=== PATIENT | female | born 1960 | race Caucasian/White ===

== ENCOUNTER 2017-03-01 10:13 | Emergency (ER) | payer OTHER ==
[~2017-03-01] VITALS: Ht 170.2 cm; Wt 136.1 kg
[~2017-03-01 10:13] MED LIST: CIPR-225 PO; CIPR7.5D2 EACH EAR; CLAR-19 PO; CYCL10TA9 PO; HYDR-3583 PO; HYDR12.570; LEVO750T6 PO; LSNP10T; NAPR-243 PO; NAPR220T66 PO; PRD20T PO; TRM50T PO
--- OUTSIDE RECORDS SUMMARY | 2017-03-01 10:30 | XMS REPORT | Clinical Summary ---
Author Author Admin, Desiree Organization [employer] Address Unknown Phone Unavailable Allergies, Adverse Reactions, Alerts Allergy Name Reaction Description Start Date Severity Status Provider DIFLUCAN Critical Active Chester De La Cruz MD SULFA thick tongue, difficulty swallowing Critical Active Chester De La Cruz MD Conditions or Problems Problem Name Problem Code Onset Date Status Entry Date Provider Comment Standard Description Annotate Hypertension 401.9 Active Chester De La Cruz MD Unspecified essential hypertension Depression 311 Active Chester De La Cruz MD Depressive disorder, not elsewhere classified Renal mass 593.9 Active Chester De La Cruz MD Unspecified disorder of kidney and ureter Medication List Medication Instructions Start Date Stop Date Generic Name NDC Status Provider Patient Instruction METOPROLOL TARTRATE 25 MG ORAL TABS Take one by mouth daily METOPROLOL TARTRATE 63934991390 Active Chester De La Cruz MD Active CYMBALTA 30 MG ORAL CPEP Take one by mouth daily DULOXETINE HCL 92421584183 Active Chester De La Cruz MD Active Diagnostic Results Date Name Value Unit Range Description Lab Report: Creatinine, BUN - Chemistry creatinine, serum 0.82 mg/dL 0.55-1.30 urea nitrogen, blood 11 mg/dL 7-18 Encounters Code Encounter Date Provider Facility CPT-90169 Level 4 New Patient 10:56:37 CDT Chester De La Cruz MD [employer] [facility] Procedures Code Procedure Name Date Entry Date Standard Description CPT-82798 Venipuncture Draw Fee 11:14:56 CDT
--- OUTSIDE RECORDS SUMMARY | 2017-03-01 10:30 | XMS REPORT | Clinical Summary ---
Author Author Admin, Desiree Organization [employer] Address Unknown Phone Unavailable Allergies, Adverse Reactions, [...] Take one by mouth daily METOPROLOL TARTRATE 97840798360 Active Chester De La Cruz MD Active CYMBALTA 30 MG ORAL CPEP Take one by mouth daily DULOXETINE HCL 99889618832 Active Chester De La Cruz MD Active Diagnostic Results Date Name Value Unit Range Description Lab Report: Creatinine, BUN - Chemistry creatinine, serum 0.82 mg/dL 0.55-1.30 urea nitrogen, blood 11 mg/dL 7-18 Encounters Code Encounter Date Provider Facility CPT-28741 Level 4 New Patient 10:56:37 CDT Chester De La Cruz MD [employer] [facility] Procedures Code Procedure Name Date Entry Date Standard Description CPT-62172 Venipuncture Draw Fee 11:14:56 CDT
--- OUTSIDE RECORDS SUMMARY | 2017-03-01 10:30 | XMS REPORT ---
Author Author MARINA RANKIN Organization [employer] Address Unknown Phone Unavailable Care Team Providers Care Storage Engineer Name Role Phone MARINA RANKIN CP Unavailable Allergies, Adverse Reactions, Alerts Substance Reaction Event Type Diflucan Info Not Available Drug Allergy Problems Problem Type Condition Code Onset Dates Condition Status Problem Other drug allergy 995.27 Active Assessment Urgency of micturition R39.15 Active Problem Unspecified seborrheic dermatitis 690.10 Active Assessment Low back pain radiating to right lower extremity M54.5 Active Problem Unspecified infective otitis externa 380.10 Active Problem Other psoriasis 696.1 Active Problem Abdominal pain, unspecified site 789.00 Active Problem Counseling on injury prevention V65.43 Active Problem Thoracic or lumbosacral neuritis or radiculitis, unspecified 724.4 Active Problem Cough 786.2 Active Problem Acute sinusitis, unspecified 461.9 Active Problem Rash and other nonspecific skin eruption 782.1 Active Problem Abdominal or pelvic swelling, mass or lump, unspecified site 789.30 Active Problem Anxiety state, unspecified 300.00 Active Problem Unspecified episodic mood disorder 296.90 Active Problem Unspecified viral infection, in conditions classified elsewhere and of unspecified site 079.99 Active Problem Insomnia, unspecified 780.52 Active Problem Essential hypertension, benign 401.1 Active Problem Pain in joint, lower leg 719.46 Active Problem Acute pharyngitis 462 Active Problem Acute upper respiratory infections of unspecified site 465.9 Active Problem Unspecified pruritic disorder 698.9 Active Problem Candidiasis of unspecified site 112.9 Active Problem Other chronic pain 338.29 Active Problem Unspecified disorder of skin and subcutaneous tissue 709.9 Active Medications Medication Code System Code Instructions Start Date End Date Status Dosage Lisinopril [facility] [address]-06 10 MG Orally Once a day Apr 14, 2015 1 tablet Aleve [facility] [address]-71 220 MG Orally every 12 hrs 1 tablet as needed Macrobid [facility] [address]-73 100 MG Orally every 12 hrs Apr 14, 2015Apr 1 capsule with food Cyclobenzaprine HCl [facility] [address]-29 10 MG Orally Three times a day MarApr 24, 2015 1 tablet Procedures Procedure Coding System Code Date URINALYSIS, AUTO, W/O SCOPE CPT-4 74476 Apr 14, 2015 URINE CULTURE/COLONY COUNT CPT-4 48081 Apr 14, 2015 Office Visit, Est Pt., Level 3 CPT-4 14715 Apr 14, 2015 Vital Signs Date/Time: Apr 14, 2015 Temperature 99.1 F Weight 300.0 lbs Height 67 in BMI 46.98 Index Blood Pressure Diastolic 100 mmHg Blood Pressure Systolic 140 mmHg Cardiac Monitoring Heart Rate 86 bpm Results Name Result Date Reference Range Unit Abnormality Flag UA LONG DIP (IN HOUSE) ----MCKENNA Negative 20150414 ----NIT Positive 20150414 ----Exp date 20150414 ----Lot # [id number] ----SG 1.010 20150414 ----KET negative 20150414 ----ABDULKADIR negative 20150414 ----GLU negative 20150414 ----Odor no 20150414 ----pH 5.0 20150414 ----BLO Trace-lysed 20150414 ----URO 0.2 20150414 ----Protein Negative 20150414 ----Lot # [id number] ----Exp date 20150414 ----Clarity clear 20150414 ----Color yellow 20150414 Summary Purpose [employer] Submission
--- OUTSIDE RECORDS SUMMARY | 2017-03-01 10:31 | XMS REPORT ---
Author [facility] Medical Staff Organization [employer] [facility] Address [address] [place], [place] [id number] Phone [phone] Summary purpose TRANSITION OF CARE AUTO GENERATION Chief Complaint and Reason for Visit No authorized Reason for Visit (Admitting Diagnosis) is available for this visit. Problem list No authorized problems tracked for continuity of care are available for this visit. Encounters No authorized problems tracked for encounter diagnoses are available for this visit. Medications No medications recorded for this patient visit Allergies, adverse reactions, alerts No allergy information is available for this patient. Immunizations No immunizations recorded for this patient visit Relevant diagnostic tests and/or laboratory data RESULTS Radiology Results [id number] CT ABD/PEL W CONTRAST PACs Image DATE OF EXAM: Oct 08 2015 [id number] ABD/PELV W CONTRAST : RADIOLOGY REPORT DATE OF SERVICE: 10/08/15 HISTORY: Patient has a left kidney mass which apparently is being followed at an outside institution I believe [facility]. CT ABDOMEN AND PELVIS WITH CONTRAST 1340 HOURS The study shows no lesion in the liver. The gallbladder has been removed. There is no biliary duct dilatation. The spleen is normal. Stomach, pancreas, and adrenal glands are normal. No aneurysm of aorta is seen. The right kidney is unremarkable with no calculi, hydronephrosis, or mass. The right ureter is normal. The left kidney shows an exophytic round to oval lesion anteriorly in the lower aspect. This has fairly abundant peripheral calcification which is fairly regular in thickness. The central portion of this structure has density measurements suggesting probable cyst. The size is 1.9 x 2.0 concerning AP and transverse measurement and 2.5 cm cephalocaudal dimension. Based on a report of a study 4 years earlier this is nearly identical size. The remainder of the left kidney is normal. There is no adenopathy in the abdomen or pelvis. No mesenteric mass or ascites are seen. Bowel is normal. The uterus and adnexa are normal. No other abnormality is seen. IMPRESSION: Peripherally calcified exophytic fairly round lesion anteriorly involving left lower kidney. Based on size being the same over 4 years this is likely benign possibly represents complicated cyst from previous infection. Remainder of study negative Samantha Vaughn DO /va 10/08/2015 14:03: / 10/08/2015 14:48:14 cc:Dr. Celio De La Cruz This document has been electronically Signed by: On: DATE OF EXAM: Oct 08 2015 [id number] ABD/PELV W CONTRAST : RADIOLOGY REPORT DATE OF SERVICE: 10/08/15 HISTORY: Patient has a left kidney mass which apparently is being followed at an outside institution I believe [facility]. CT ABDOMEN AND PELVIS WITH CONTRAST 1340 HOURS The study shows no lesion in the liver. The gallbladder has been removed. There is no biliary duct dilatation. The spleen is normal. Stomach, pancreas, and adrenal glands are normal. No aneurysm of aorta is seen. The right kidney is unremarkable with no calculi, hydronephrosis, or mass. The right ureter is normal. The left kidney shows an exophytic round to oval lesion anteriorly in the lower aspect. This has fairly abundant peripheral calcification which is fairly regular in thickness. The central portion of this structure has density measurements suggesting probable cyst. The size is 1.9 x 2.0 concerning AP and transverse measurement and 2.5 cm cephalocaudal dimension. Based on a report of a study 4 years earlier this is nearly identical size. The remainder of the left kidney is normal. There is no adenopathy in the abdomen or pelvis. No mesenteric mass or ascites are seen. Bowel is normal. The uterus and adnexa are normal. No other abnormality is seen. IMPRESSION: Peripherally calcified exophytic fairly round lesion anteriorly involving left lower kidney. Based on size being the same over 4 years this is likely benign possibly represents complicated cyst from previous infection. Remainder of study negative Samantha Vaughn DO /shannan 10/08/2015 14:03: / 10/08/2015 14:48:14 cc:Dr. Celio De La Cruz This document has been electronically Signed by: SAMANTHA VAUGHN DO On: Oct 08 20156:47P Result Amended on 2015-10-08 at 18:47:49. Previous status was [place]. History of procedures No procedures recorded for this patient visit. Functional status No functional or cognitive status observations are available for this visit. Vital signs No authorized vital signs are available for this visit. Social history No Social History or smoking status observations were recorded for this visit. ( Unknown if ever smoked.) Treatment Plan No treatment plan text is available for this visit. Hospital discharge instructions No discharge instruction text is available for this visit.
--- OUTSIDE RECORDS SUMMARY | 2017-03-01 10:31 | XMS REPORT | Clinical Summary ---
Author Author Admin, PORSHA Organization [employer] Address Unknown Phone Unavailable Allergies, Adverse Reactions, [...] Take one by mouth daily METOPROLOL TARTRATE 01619666539 Active Chester De La Cruz MD Active CYMBALTA 30 MG ORAL CPEP Take one by mouth daily DULOXETINE HCL 87568963404 Active Chester De La Cruz MD Active Vital Signs Date Name Value Unit Range Description blood pressure, diastolic - 8462-4 90 mm[Hg] BP oro blood pressure, systolic - 8480-6 150 mm[Hg] BP sys height E&M - 8302-2 67 [in_us] Bdy height pulse rate E&M - 8867-4 57 /min Heart rate temperature E&M 96 [degF] Body temperature weight E&M - 3141-9 299 [lb_av] Weight Measured Diagnostic Results Date Name Value Unit Range Description Lab Report: Creatinine, BUN - Chemistry creatinine, serum 0.82 mg/dL 0.55-1.30 urea nitrogen, blood 11 mg/dL 7-18 Office Visit: CN Left renal mass and right flank pain - Chemistry RBC, urine, dipstick negative protein, total urine random negative mg/dL Office Visit: CN Left renal mass and right flank pain - Urinalysis pH, urine, semiquantitative 6 specific gravity, urine 1.010 ketones, urine, by test strip negative bilirubin, urine negative glucose, urine, semiquantitative negative urine color yellow appearance, urine clear leukocyte esterase, urine, by dipstick negative nitrite, urine, semiquantitative negative urobilinogen, urine, semiquantitative (dipstick) 0.2 protein, urine, semiquantitative (dipstick) negative Encounters Code Encounter Date Provider Facility CPT-33923 Level 4 New Patient 10:56:37 CDT Chester De La Cruz MD [facility] Procedures Code Procedure Name Date Entry Date Standard Description CPT-87127 Venipuncture Draw Fee 11:14:56 CDT
--- OUTSIDE RECORDS SUMMARY | 2017-03-01 10:31 | XMS REPORT | Clinical Summary ---
Author Author Admin, PORSHA Organization [employer] Address Unknown Phone Unavailable Allergies, Adverse Reactions, Alerts Allergy Name Reaction Description Start Date Severity Status Provider DIFLUCAN Critical Active Chester De La Cruz MD SULFA thick tongue, difficulty swallowing Critical Active Chester eD La Cruz MD Conditions or Problems Problem [...] Take one by mouth daily METOPROLOL TARTRATE 74504362870 Active Chester De La Cruz MD Active CYMBALTA 30 MG ORAL CPEP Take one by mouth daily DULOXETINE HCL 35276318231 Active Chester De La Cruz MD Active [...] negative Encounters Code Encounter Date Provider Facility CPT-19318 Level 4 New Patient 10:56:37 CDT Chester DeL a Cruz MD [facility] Procedures Code Procedure Name Date Entry Date Standard Description CPT-18071 Venipuncture Draw Fee 11:14:56 CDT
--- OUTSIDE RECORDS SUMMARY | 2017-03-01 10:33 | XMS REPORT ---
Author Author [employer] [facility] Medical Staff Organization [employer] [facility] Address [address] [place], [place] [address] Phone [phone] Summary purpose TRANSITION OF CARE AUTO GENERATION [...] tests and/or laboratory data RESULTS Radiology Results [id number] CT ABD/PEL W CONTRAST PACs Image DATE OF EXAM: Oct 08 2015 [id number] ABD/PELV W CONTRAST : RADIOLOGY REPORT DATE OF SERVICE: 10/08/15 HISTORY: Patient has a left kidney mass which apparently is being followed at an outside institution I believe [facility]. CT ABDOMEN AND PELVIS WITH CONTRAST 1340 [...] Remainder of study negative Samantha Vaughn DO /dc 10/08/2015 14:03:00 / 10/08/2015 14:48:14 cc:Dr. Celio Mari This document has been electronically Signed by: On: DATE OF EXAM: Oct 08 2015 [id number] ABD/PELV W CONTRAST : RADIOLOGY REPORT DATE [...] Remainder of study negative Samantha Vaughn DO /dc 10/08/2015 14:03:00 / 10/08/2015 14:48:14 cc:Dr. Celio Mari This document has been electronically Signed by: SAMANTHA VAUGHN DO On: Oct 08 20156:47P Result Amended on 2015-10-08 at 18:47:49. Previous status was [place]. History of procedures Procedure Code Code Type Description Date Performed Performing Physician 24282 CPT-4 CT ABDOMEN&PELVIS W/CONTRAST 10-08-2015 CELIO MARI Functional status No functional or cognitive status [...]
--- OUTSIDE RECORDS SUMMARY | 2017-03-01 10:34 | XMS REPORT | Continuity of Care Document ---
Author Author [facility] Address Unknown Phone Unavailable Allergies Active Description Code Type Severity Reaction Onset Reported/Identified Relationship to Patient Clinical Status Yes sulfa drug Drug Allergy 09/30/2009 Yes Diflucan Drug Allergy 11/02/2011 Yes Diflucan Drug Allergy N/A N/A 11/02/2011 Yes Sulfa (Sulfonamide Antibiotics) [id number] Drug Allergy Severe N/A 10/16/2012 Medications Problems Date Dx Coded Attending Type Code Diagnosis Diagnosed By 09/02/2009 Ot 847.0 09/02/2009 Ot 847.1 09/02/2009 Ot 847.2 09/02/2009 Ot 923.00 09/02/2009 Ot 924.11 09/02/2009 Ot 959.09 09/02/2009 Ot E000.8 09/02/2009 Ot E030 09/02/2009 Ot E812.0 09/15/2009 LATASHA BALDERRAMA APRN S V06.4 Mmr, Echfhvw-jxacu-akxggha Vac 09/15/2009 V06.4 Mmr, Qpxtsly-wdngp-vpppxjn Vac 09/15/2009 FRANCIS CHAUDHARY DO V06.4 Mmr, Ztwtitx-xegzb-sadkiuy Vac 09/15/2009 AFIA ZIEGLER APRN R V06.4 Mmr, Vpnfsus-aswrz-nsdbuzx Vac 09/15/2009 VASQUEZ YE APRN V06.4 Mmr, Cnkarvn-gtvzc-twqdadt Vac 09/30/2009 LATASHA BALDERRAMA APRN 599.0 Urinary Tract Infection 09/30/2009 LATASHA BALDERRAMA APRN 788.1 Dysuria 09/30/2009 599.0 Urinary Tract Infection 09/30/2009 788.1 Dysuria 09/30/2009 FRANCIS CHAUDHARY DO 599.0 Urinary Tract Infection 09/30/2009 FRANCIS CHAUDHARY DO 788.1 Dysuria 09/30/2009 TONEY DIXON AFIA R 599.0 Urinary Tract Infection 09/30/2009 TONEY DIXON AFIA R 788.1 Dysuria 09/30/2009 JORDON YE APRNRICIA R 599.0 Urinary Tract Infection 09/30/2009 JORDON YE APRNRICIA R 788.1 Dysuria 11/10/2009 Ot 278.00 11/10/2009 Ot 305.1 11/10/2009 Ot 401.9 11/10/2009 Ot 710.0 11/10/2009 Ot 786.50 11/10/2009 Ot V85.4 01/12/2010 ELIAS BALDERRAMA APRNNDA S 599.70 Hematuria, Unspecified 01/12/2010 KRISTYN BALDERRAMA APRNA S 724.2 LUMBAGO 01/12/2010 599.70 Hematuria, Unspecified 01/12/2010 724.2 LUMBAGO 01/12/2010 CHAUDHARY DO, FRANCIS K 599.70 Hematuria, Unspecified 01/12/2010 CHAUDHARY DO, FRANCIS K 724.2 LUMBAGO 01/12/2010 TONEY DIXON AFIA R 599.70 Hematuria, Unspecified 01/12/2010 TONEY DIXON AFIA R 724.2 LUMBAGO 01/12/2010 JORDON YE APRNRICIA R 599.70 Hematuria, Unspecified 01/12/2010 JORDON YE APRNRICIA R 724.2 LUMBAGO 03/23/2010 KRISTYN BALDERRAMA APRNA S 461.9 Sinusitis Acute 03/23/2010 LATASHA BALDERRAMA APRN S 796.2 ELEVATED BLOOD PRESSURE READING WITHOUT DIAGNOSIS OF HYPERTENSION 03/23/2010 461.9 Sinusitis Acute 03/23/2010 796.2 ELEVATED BLOOD PRESSURE READING WITHOUT DIAGNOSIS OF HYPERTENSION 03/23/2010 CHAUDHARY DO, FRANCIS K 461.9 Sinusitis Acute 03/23/2010 CHAUDHARY DO, FRANCIS K 796.2 ELEVATED BLOOD PRESSURE READING WITHOUT DIAGNOSIS OF HYPERTENSION 03/23/2010 LIANNE ZIEGLER APRNINA R 461.9 Sinusitis Acute 03/23/2010 TONEY DIXON AFIA R 796.2 ELEVATED BLOOD PRESSURE READING WITHOUT DIAGNOSIS OF HYPERTENSION 03/23/2010 EVIN YE APRNIA R 461.9 Sinusitis Acute 03/23/2010 EVIN YE APRNIA R 796.2 ELEVATED BLOOD PRESSURE READING WITHOUT DIAGNOSIS OF HYPERTENSION 03/29/2010 LATASHA BALDERRAMA APRN S 278.00 OBESITY UNSPECIFIED 03/29/2010 LATASHA BALDERRAMA APRN S 305.1 NONDEPENDENT TOBACCO USE DISORDER 03/29/2010 LATASHA BALDERRAMA APRN S 729.1 Myalgia And Myositis Unspecified 03/29/2010 278.00 OBESITY UNSPECIFIED 03/29/2010 305.1 NONDEPENDENT TOBACCO USE DISORDER 03/29/2010 729.1 Myalgia And Myositis Unspecified 03/29/2010 CHAUDHARY DO, FRANCIS K 278.00 OBESITY UNSPECIFIED 03/29/2010 CHAUDHARY DO, FRANCIS K 305.1 NONDEPENDENT TOBACCO USE DISORDER 03/29/2010 CHAUDHARY DO, FRANCIS K 729.1 Myalgia And Myositis Unspecified 03/29/2010 TONEY DIXON AFIA R 278.00 OBESITY UNSPECIFIED 03/29/2010 TONEY DIXON AFIA R 305.1 NONDEPENDENT TOBACCO USE DISORDER 03/29/2010 TONEY DIXON AFIA R 729.1 Myalgia And Myositis Unspecified 03/29/2010 JORDON YE APRNRICIA R 278.00 OBESITY UNSPECIFIED 03/29/2010 JORDON YE APRNRICIA R 305.1 NONDEPENDENT TOBACCO USE DISORDER 03/29/2010 JORDON YE APRNRICIA R 729.1 Myalgia And Myositis Unspecified 03/31/2010 LATASHA BALDERRAMA APRN S 268.9 VITAMIN D DEFICIENCY 03/31/2010 LATASHA BALDERRAMA APRN S 272.4 Dyslipidemia 03/31/2010 268.9 VITAMIN D DEFICIENCY 03/31/2010 272.4 Dyslipidemia 03/31/2010 CHAUDHARY DO, FRANCIS K 268.9 VITAMIN D DEFICIENCY 03/31/2010 CHAUDHARY DO, FRANCIS K 272.4 Dyslipidemia 03/31/2010 TONEY DIXON AFIA R 268.9 VITAMIN D DEFICIENCY 03/31/2010 TONEY DIXON AFIA R 272.4 Dyslipidemia 03/31/2010 JORDON YE APRNRICIA R 268.9 VITAMIN D DEFICIENCY 03/31/2010 JORDON YE APRNRICIA R 272.4 Dyslipidemia 06/28/2010 KRISTYN BALDERRAMA APRNA S 724.8 OTHER SYMPTOMS REFERABLE TO BACK 06/28/2010 KRISTYN BALDERRAMA APRNA S 782.1 Rash And Other Nonspecific Skin Eruption 06/28/2010 724.8 OTHER SYMPTOMS REFERABLE TO BACK 06/28/2010 782.1 Rash And Other Nonspecific Skin Eruption 06/28/2010 CHAUDHARY DO, FRANCIS K 724.8 OTHER SYMPTOMS REFERABLE TO BACK 06/28/2010 CHAUDHARY DO FRANCIS K 782.1 Rash And Other Nonspecific Skin Eruption 06/28/2010 TONEY LEGAL DOCUMENT SPECIALIST, AFIA R 724.8 OTHER SYMPTOMS REFERABLE TO BACK 06/28/2010 TONEY ZAMBRANON, AFIA R 782.1 Rash And Other Nonspecific Skin Eruption 06/28/2010 JORDON YE APRNRICIA R 724.8 OTHER SYMPTOMS REFERABLE TO BACK 06/28/2010 EVIN YE APRNIA R 782.1 Rash And Other Nonspecific Skin Eruption 07/28/2010 LATASHA BALDERRAMA APRN S 477.9 Allergic Rhinitis Cause Unspecified 07/28/2010 LATASHA BALDERRAMA APRN S 786.07 Wheezing 07/28/2010 LATASHA BALDERRAMA APRN S 786.2 Cough 07/28/2010 477.9 Allergic Rhinitis Cause Unspecified 07/28/2010 786.07 Wheezing 07/28/2010 786.2 Cough 07/28/2010 CHAUDHARY DO FRANCIS K 477.9 Allergic Rhinitis Cause Unspecified 07/28/2010 CHAUDHARY DO, FRANCIS K 786.07 Wheezing 07/28/2010 CHAUDHARY DO FRANCIS K 786.2 Cough 07/28/2010 TONEY ZAMBRANON AFIA R 477.9 Allergic Rhinitis Cause Unspecified 07/28/2010 TONEY LEGAL DOCUMENT SPECIALIST, AFIA R 786.07 Wheezing 07/28/2010 TONEY LEGAL DOCUMENT SPECIALIST, AFIA R 786.2 Cough 07/28/2010 JORDON YE APRNRICIA R 477.9 Allergic Rhinitis Cause Unspecified 07/28/2010 EVIN YE APRNIA R 786.07 Wheezing 07/28/2010 EPHRAIM ZAMBRANONJORDONVASQUEZ R 786.2 Cough 08/26/2010 LATASHA BALDERRAMA APRN S 112.3 CANDIDIASIS OF SKIN AND NAILS 08/26/2010 112.3 CANDIDIASIS OF SKIN AND NAILS 08/26/2010 FRANCIS CHAUDHARY DO K 112.3 CANDIDIASIS OF SKIN AND NAILS 08/26/2010 AFIA ZIEGLER APRN R 112.3 CANDIDIASIS OF SKIN AND NAILS 08/26/2010 VASQUEZ YE APRN R 112.3 CANDIDIASIS OF SKIN AND NAILS 09/02/2010 LATASHA BALDERRAMA APRN S 133.0 Scabies 09/02/2010 133.0 Scabies 09/02/2010 FRANCIS CHAUDHARY DO K 133.0 Scabies 09/02/2010 AFIA ZIEGLER APRN R 133.0 Scabies 09/02/2010 VASQUEZ YE APRN R 133.0 Scabies 05/10/2011 LATASHA BALDERRAMA APRN S 401.1 HYPERTENSION, BENIGN ESSENTIAL 05/10/2011 LATASHA BALDERRAMA APRN S 465.9 Upper Respiratory Infection 05/10/2011 401.1 HYPERTENSION, BENIGN ESSENTIAL 05/10/2011 465.9 Upper Respiratory Infection 05/10/2011 FRANCIS CHAUDHARY DO K 401.1 HYPERTENSION, BENIGN ESSENTIAL 05/10/2011 FRANCIS CHAUDHARY DO K 465.9 Upper Respiratory Infection 05/10/2011 AFIA ZIEGLER APRN R 401.1 HYPERTENSION, BENIGN ESSENTIAL 05/10/2011 AFIA ZIEGLER APRN R 465.9 Upper Respiratory Infection 05/10/2011 VASQUEZ YE APRN R 401.1 HYPERTENSION, BENIGN ESSENTIAL 05/10/2011 EVIN YE APRNIA R 465.9 Upper Respiratory Infection 06/27/2011 LATASHA BALDERRAMA APRN S 789.00 Abdominal Pain 06/27/2011 789.00 Abdominal Pain 06/27/2011 FRANCIS CHAUDHARY DO K 789.00 Abdominal Pain 06/27/2011 AFIA ZIEGLER APRN R 789.00 Abdominal Pain 06/27/2011 VASQUEZ YE APRN R 789.00 Abdominal Pain 07/13/2011 LATASHA BALDERRAMA APRN S 789.30 Abdominal Or Pelvic Swelling Mass Or Lump Unspecified Site 07/13/2011 789.30 Abdominal Or Pelvic Swelling Mass Or Lump Unspecified Site 07/13/2011 FRANCIS CHAUDHARY DO K 789.30 Abdominal Or Pelvic Swelling Mass Or Lump Unspecified Site 07/13/2011 AFIA ZIEGLER APRN R 789.30 Abdominal Or Pelvic Swelling Mass Or Lump Unspecified Site 07/13/2011 VASQUEZ YE APRN R 789.30 Abdominal Or Pelvic Swelling Mass Or Lump Unspecified Site 08/05/2011 LATASHA BALDERRAMA APRN S 338.29 OTHER CHRONIC PAIN 08/05/2011 LATASHA BALDERRAMA APRN S 698.9 UNSPECIFIED PRURITIC DISORDER 08/05/2011 LATASHA BALDERRAMA APRN S 709.9 UNSPECIFIED DISORDER OF SKIN AND SUBCUTANEOUS TISSUE 08/05/2011 338.29 OTHER CHRONIC PAIN 08/05/2011 698.9 UNSPECIFIED PRURITIC DISORDER 08/05/2011 709.9 UNSPECIFIED DISORDER OF SKIN AND SUBCUTANEOUS TISSUE 08/05/2011 NEENA CAPELLAN FRANCIS K 338.29 OTHER CHRONIC PAIN 08/05/2011 JOS CHAUDHARY DOA K 698.9 UNSPECIFIED PRURITIC DISORDER 08/05/2011 JOS CHAUDHARY DOA K 709.9 UNSPECIFIED DISORDER OF SKIN AND SUBCUTANEOUS TISSUE 08/05/2011 AFIA ZIEGLER APRN R 338.29 OTHER CHRONIC PAIN 08/05/2011 LIANNE ZIEGLER APRNINA R 698.9 UNSPECIFIED PRURITIC DISORDER 08/05/2011 LIANNE ZIEGLER APRNINA R 709.9 UNSPECIFIED DISORDER OF SKIN AND SUBCUTANEOUS TISSUE 08/05/2011 VASQUEZ YE APRN R 338.29 OTHER CHRONIC PAIN 08/05/2011 VASQUEZ YE APRN R 698.9 UNSPECIFIED PRURITIC DISORDER 08/05/2011 VASQUEZ YE APRN R 709.9 UNSPECIFIED DISORDER OF SKIN AND SUBCUTANEOUS TISSUE 11/02/2011 LATASHA BALDERRAMA APRN S 112.9 CANDIDIASIS OF UNSPECIFIED SITE 11/02/2011 LATASHA BALDERRAMA APRN S 995.27 OTHER DRUG ALLERGY 11/02/2011 112.9 CANDIDIASIS OF UNSPECIFIED SITE 11/02/2011 995.27 OTHER DRUG ALLERGY 11/02/2011 NEENA CAPELLAN FRANCIS K 112.9 CANDIDIASIS OF UNSPECIFIED SITE 11/02/2011 NEENA CAPELLAN FRANCIS K 995.27 OTHER DRUG ALLERGY 11/02/2011 TONEY DIXON AFIA R 112.9 CANDIDIASIS OF UNSPECIFIED SITE 11/02/2011 LIANNE ZIEGLER APRNINA R 995.27 OTHER DRUG ALLERGY 11/02/2011 VASQUEZ YE APRN R 112.9 CANDIDIASIS OF UNSPECIFIED SITE 11/02/2011 VASQUEZ YE APRN R 995.27 OTHER DRUG ALLERGY 11/16/2011 LATASHA BALDERRAMA APRN S 782.1 RASH 11/16/2011 782.1 RASH 11/16/2011 FRANCIS CHAUDHARY DO K 782.1 RASH 11/16/2011 LIANNE ZIEGLER APRNINA R 782.1 RASH 11/16/2011 VASQUEZ YE APRN R 782.1 RASH 12/27/2011 LATASHA BALDERRAMA APRN S 296.90 MOOD DISORDER 12/27/2011 KRISTYN BALDERRAMA APRNA S 696.1 PSORIASIS 12/27/2011 296.90 MOOD DISORDER 12/27/2011 696.1 PSORIASIS 12/27/2011 FRANCIS CHAUDHARY DO K 296.90 MOOD DISORDER 12/27/2011 FRANCIS CHAUDHARY DO K 696.1 PSORIASIS 12/27/2011 LIANNE ZIEGLER APRNINA R 296.90 MOOD DISORDER 12/27/2011 AFIA ZIEGLER APRN R 696.1 PSORIASIS 12/27/2011 VASQUEZ YE APRN R 296.90 MOOD DISORDER 12/27/2011 EVIN YE APRNIA R 696.1 PSORIASIS 05/07/2012 LATASHA BALDERRAMA APRN S 719.46 PAIN IN JOINT INVOLVING LOWER LEG 05/07/2012 719.46 PAIN IN JOINT INVOLVING LOWER LEG 05/07/2012 FRANCIS CHAUDHARY DO 719.46 PAIN IN JOINT INVOLVING LOWER LEG 05/07/2012 AFIA ZIEGLER APRN R 719.46 PAIN IN JOINT INVOLVING LOWER LEG 05/07/2012 VASQUEZ YE APRN R 719.46 PAIN IN JOINT INVOLVING LOWER LEG 05/22/2012 LATASHA BALDERRAMA APRN S 079.99 VIRAL SYNDROME 05/22/2012 079.99 VIRAL SYNDROME 05/22/2012 FRANCIS CHAUDHARY DO K 079.99 VIRAL SYNDROME 05/22/2012 LIANNE ZIEGLER APRNINA R 079.99 VIRAL SYNDROME 05/22/2012 VASQUEZ YE APRN R 079.99 VIRAL SYNDROME 09/27/2012 380.10 INFECTIVE OTITIS EXTERNA UNSPECIFIED 09/27/2012 FRANCIS CHAUDHARY DO 380.10 INFECTIVE OTITIS EXTERNA UNSPECIFIED 09/27/2012 AFIA ZIEGLER APRN R 380.10 INFECTIVE OTITIS EXTERNA UNSPECIFIED 09/27/2012 VASQUEZ YE APRN R 380.10 INFECTIVE OTITIS EXTERNA UNSPECIFIED 10/16/2012 ELY WARNER DO Ot 305.1 10/16/2012 ELY WARNER DO Ot 380.10 10/16/2012 ELY WARNER DO Ot 388.70 10/16/2012 ELY WARNER DO Ot 682.9 10/16/2012 ELY WARNER DO Ot 710.0 01/09/2013 SULEMAN ESCOBEDO LEGAL DOCUMENT SPECIALIST Ot 724.2 01/09/2013 SULEMAN ESCOBEDO LEGAL DOCUMENT SPECIALIST Ot 724.4 01/17/2013 FRANCIS CHAUDHARY DO 724.4 THORACIC OR LUMBOSACRAL NEURITIS OR RADICULITIS UNSPECIFIED 01/17/2013 FRANCIS CHAUDHARY DO V65.43 COUNSELING ON INJURY PREVENTION 01/17/2013 AFIA ZIEGLER APRN R 724.4 THORACIC OR LUMBOSACRAL NEURITIS OR RADICULITIS UNSPECIFIED 01/17/2013 AFIA ZIEGLER APRN R V65.43 COUNSELING ON INJURY PREVENTION 01/17/2013 VASQUEZ YE APRN R 724.4 THORACIC OR LUMBOSACRAL NEURITIS OR RADICULITIS UNSPECIFIED 01/17/2013 VASQUEZ YE APRN R V65.43 COUNSELING ON INJURY PREVENTION 05/14/2013 AFIA ZIEGLER APRN R 462 ACUTE PHARYNGITIS 05/14/2013 AFIA ZIEGLER APRN R 786.2 COUGH 05/14/2013 VASQUEZ YE APRN R 462 ACUTE PHARYNGITIS 05/14/2013 VASQUEZ YE APRN R 786.2 COUGH 10/31/2013 VASQUEZ YE APRN 380.10 OTITIS EXTERNA BOTH 10/31/2013 VASQUEZ YE APRN R 690.10 SEBORRHEIC DERMATITIS UNSPECIFIED 11/20/2014 Ot 592.0 11/20/2014 Ot 593.9 11/20/2014 Ot 789.09 11/20/2014 Ot 593.2 11/20/2014 Ot 593.9 11/20/2014 Ot 789.00 11/20/2014 Ot 592.0 11/20/2014 Ot 593.9 11/20/2014 Ot 789.09 11/20/2014 Ot 593.2 11/20/2014 Ot 593.9 11/20/2014 Ot 789.00 11/20/2014 Ot 592.0 11/20/2014 Ot 593.9 11/20/2014 Ot 789.09 11/20/2014 Ot 593.2 11/20/2014 Ot 593.9 11/20/2014 Ot 789.00 11/22/2014 ASHLEY MCDONALD MD Ot 305.1 11/22/2014 ASHLEY MCDONALD MD Ot 486 11/22/2014 ASHLEY MCDONALD MD Ot 496 Procedures Results Encounters ACCT No. Visit Date/Time Discharge Status Pt. Type Provider Facility Loc./Unit Complaint [id number] 10/31/2013 16:39:00 10/31/2013 23: 59:59 CLS Outpatient VASQUEZ YE APRN [id number] 05/14/2013 17:15:00 05/14/2013 23: 59:59 CLS Outpatient AFIA ZIEGLER APRN [id number] 01/17/2013 11:32:00 01/17/2013 23: 59:59 CLS Outpatient FRANCIS CHAUDHARY DO [id number] 05/22/2012 14:04:00 05/22/2012 23: 59:59 CLS Outpatient LATASHA BALDERRAMA APRN [id number] 09/27/2012 14:59:00 Document Registration [id number] 11/20/2014 21:18:00 2014 13:25:00 DIS Inpatient ASHLEY MCDONALD MD [facility] SURGICAL [id number] 01/09/2013 19:58:00 2012 21:49:00 DIS Emergency SULEMAN ESCOBEDO APRN [facility] ER [id number] 10/16/2012 11:46:00 2012 13:08:00 DIS Emergency ELY WARNER DO [facility] ER [id number] 07/11/2011 10:47:00 Document Registration [id number] 06/29/2011 13:44:00 Document Registration [id number] 06/27/2011 15:21:00 Document Registration [id number] 11/08/2009 23:26:00 Document Registration [id number] 09/02/2009 14:17:00 Document Registration
[2017-03-01] MEDS ORDERED: METO-370 (10:42)
--- NOTE | 2017-03-01 12:20 | ED EENT ---
History of Present Illness General Chief Complaint: Ear Problems Stated Complaint: SWELLING RIGHT EAR, FEVER, PAIN Nursing Triage Note: AMB TO ROOM REPORTS SUN. FELT L LIKE SHE WAS GETTING A SINUS INFECTION. MONDAY LIZBETH. NOTIDED THE TOP OF HER R EAR IS SWOLLEN. HYPERTENSIVE ON ADMIT HAS N OT TAKEN HER B/P MEDS FOR 2 MONTHS. Source: patient Exam Limitations: no limitations History of Present Illness Time seen by provider: 12:20 Initial Comments 56 showed female patient presents to the emergency department with 3 day onset of sinus congestion, rhinorrhea, watery eyes, sneezing, sore throat, right ear pain, and swelling of the right external ear. Patient did take motrin yesterday without improvement in symptoms. Had a fever yesterday of 100.2 degrees F. Patient also noted to be hypertensive with blood pressure 160/123 in the emergency department. Patient states she has not used her blood pressure medication for proximally 2-3 months due to not being able to afford the medication. Timing/Duration: abrupt, other (3 day onset) Prearrival Treatment: over the counter meds Modifying Factors: Worse With Other (rt ear worse with palpation.) Allergies and Home Medications Allergies Coded Allergies: Sulfa (Sulfonamide Antibiotics) (Verified Allergy, Severe, 10/16/12) Home Medications Clindamycin HCl 300 Mg Capsule, 300 MG PO QID, #28 Ref 0 Prescribed by: LARISSA JEAN-BAPTISTE on 03/01/17 1235 Metoprolol Succinate 50 Mg Tab.er.24h, (Reported) Metoprolol Tartrate 25 Mg Tablet, 25 MG PO BID, #60 Ref 0 Prescribed by: ALRISSA JEAN-BAPTISTE on 03/01/17 1235 Prednisone 20 Mg Tab, 40 MG PO DAILY, #10 Ref 0 Prescribed by: LARISSA JEAN-BAPTISTE on 03/01/17 1235 Review of Systems Constitutional: see HPI, chills, No dizziness, fever, malaise Eyes: See HPI Ears: See HPI Nose: see HPI Mouth: no symptoms reported Throat: see HPI, denies difficulty with fluids Respiratory: cough, No dyspnea on exertion, No orthopnea, phlegm (clear), No short of breath, No wheezing Cardiovascular: no symptoms reported Gastrointestinal: No abdominal pain, No constipation, No diarrhea, No nausea, No vomiting Musculoskeletal: no symptoms reported Skin: see HPI Neurological: Headache, Denies Numbness, Denies Paresthesia, Denies Tingling, Denies Weakness All Other Systems Reviewed Negative Unless Noted: Yes (Negative excepted noted.) Past Ypsvtap-Gzbwxe-[place] Hx Patient Social History Alcohol Use: Denies Use Recreational Drug Use: Yes Smoking Status: Current Everyday Smoker Recent Foreign Travel: No Contact w/Someone Who Travel: No Recent Infectious Disease Expo: No Recent Hopitalizations: No Immunizations Up To Date Tetanus Booster (TDap): Unknown PED Vaccines UTD: No Seasonal Allergies Seasonal Allergies: No Surgeries History of Surgeries: Yes Surgeries: Appendectomy, Section, Gallbladder, Tonsillectomy Respiratory History of Respiratory Disorde: Yes Respiratory Disorders: Pneumonia Cardiovascular History of Cardiac Disorders: Yes Neurological History of Neurological Disord: No Reproductive System Hx Reproductive Disorders: No Sexually Transmitted Disease: No HIV/AIDS: No Female Reproductive Disorders: Denies MANAGER STRATEGIC SOURCING History: Tubal Ligation Gastrointestinal History of Gastrointestinal Di: No Musculoskeletal History of Musculoskeletal Dis: No Endocrine History of Endocrine Disorders: No Cancer History of Cancer: No Psychosocial History of Psychiatric Problem: No Integumentary History of Skin or Integumenta: No Blood Transfusions History of Blood Disorders: No Adverse Reaction to a Blood Tr: No Reviewed Nursing Assessment Reviewed/Agree w Nursing PMH: Yes Family Medical History Significant Family History: No Pertinent Family Hx Family Medial History: Diabetes mellitus 19 MOTHER, Onset:Unknown FHx: bladder cancer 19 MOTHER, Onset:60 years & older Hypertension 19 MOTHER, Onset:60 years & older Physical Exam Vital Signs Vital Sign - Last 12Hours 03/01/17 10:32 Temp 98.5 Pulse 92 Resp 18 B/P (MAP) 160/123 Pulse Ox 98 O2 Delivery Room Air General Appearance: WD/WN, no apparent distress Eyes: bilateral eye PERRL, bilateral eye EOMI, bilateral eye other (bilateral conjuntiva injected with watery drainage.) Ears: right ear tenderness (rt external ear shows erythema, induration, warmth and mild tenderness.), left ear auricle normal, bilateral ear canal normal, bilateral ear TM normal Nose: other ((+) rhinorrhea and nasal congestion.) Mouth/Throat: normal mouth inspection, No excessive drooling, No mandibular swelling, No maxillary swelling, other ((+) pharyngeal erythema) Neck: non-tender, full range of motion, supple, lymphadenopathy (R), lymphadenopathy (L) Cardiovascular: normal peripheral pulses, regular rate, rhythm, no edema, no murmur Respiratory: lungs clear, normal breath sounds, no respiratory distress, no accessory muscle use Gastrointestinal: normal bowel sounds, non tender, soft Neurologic/Psychiatric: alert, normal mood/affect, oriented x 3 Skin: normal color, warm/dry, other (rt external ear shows erythema, induration , warmth and mild tenderness.) Progress/Results/Core Measures Results/Orders My Orders Orders - LARISSA JEAN-BAPTISTE Dexamethasone Injection (Decadron Inject (03/01/17 12:45) Ketorolac Injection (Toradol Injection) (03/01/17 12:32) Medications Given in ED Vital Signs/I&O Vital Sign - Last 12Hours 03/01/17 13:43 Pulse 78 Resp 18 Pulse Ox 97 O2 Delivery Room Air Blood Pressure Mean: 135 Departure Communication (Admissions) Progress Notes at [facility] patient's BP is 176/111. 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 Patient instructed to check her BP 1-2x/day and to f/u with Dr. Clements in the next few days for recheck. Impression Impression: Primary Impression: Influenza-like illness Additional Impressions: Cellulitis of right external ear Hypertension Qualified Codes: I10 - Essential (primary) hypertension Disposition: 01 HOME, SELF-CARE Condition: Improved Departure-Patient Inst. Decision time for Depature: 12:36 Referrals: RENATE CLEMENTS MD (PCP/Family) Primary Care Physician Patient Instructions: Cellulitis (Skin Infection), Adult (DC), Flu, Adult (DC) Add. Discharge Instructions: All discharge instructions reviewed with patient and/or family. Voiced understanding. Medications as instructed. Tylenol Extra Strength over-the- counter as directed for pain or fever. Ibuprofen 800 mg by mouth every 8 hours as needed for pain or fever. Drink plenty of fluids. Cool humidifier. Saline nasal spray and Afrin nasal spray [id number] as needed for nasal congestion. Follow-up with your primary care provider for recheck as an outpatient. Return to the emergency department for worsened symptoms or any other concerns. Scripts Clindamycin HCl (Clindamycin HCl) 300 Mg Capsule 300 MG PO QID, #28 CAP 0 Refills Prov: LARISSA JEAN-BAPTISTE 03/01/17 Metoprolol Tartrate (Metoprolol Tartrate) 25 Mg Tablet 25 MG PO BID, #60 TAB 0 Refills Prov: LARISSA JEAN-BAPTISTE 03/01/17 Prednisone (Prednisone) 20 Mg Tab 40 MG PO DAILY, #10 TAB 0 Refills Prov: LARISSA JEAN-BAPTISTE 03/01/17 Work/School Note: Work Release Form Date Seen in the Emergency Department: Mar 01, 2017 Return to Work: Mar 04, 2017 Restrictions: Return-No Fever (24hrs) LARISSA JEAN-BAPTISTE Mar 01, 2017 12:20
[2017-03-01] MEDS ORDERED: KETOROLAC 60 MG/2 ML VIAL IM STA (12:32)
[2017-03-01] MEDS ORDERED: CLIN300C11 PO (12:35)
[2017-03-01] MEDS ORDERED: METO-333 PO (12:35)
[2017-03-01] MEDS ORDERED: PRD20T PO (12:35)
[2017-03-01] MEDS ORDERED: DEXAMETHASONE 10 MG/ML (DECADRON) 1 ML VIAL IM ONE (12:45)
[2017-03-01 13:43] VITALS: BP 176/111
== END 2017-03-01 13:42 | disposition home or self-care (01) ==
LOC: EDUNIT# 10:13 → ER 10:16
DX: J11.1 Influenza due to unidentified influenza virus with other respiratory manifestations (principal); H60.11 Cellulitis of right external ear; I10 Essential (primary) hypertension; F17.200 Nicotine dependence, unspecified, uncomplicated; Z90.49 Acquired absence of other specified parts of digestive tract; Z90.89 Acquired absence of other organs; Z87.59 Personal history of other complications of pregnancy, childbirth and the puerperium; Z87.01 Personal history of pneumonia (recurrent); Z98.51 Tubal ligation status
CPT/HCPCS: 99284

== ENCOUNTER 2018-06-25 10:38 | Emergency (ER) | payer OTHER ==
[~2018-06-25] VITALS: Ht 167.6 cm; Wt 136.1 kg
[~2018-06-25 10:38] MED LIST changes: +CLIN300C11 PO; +METO-333 PO; +METO-370
--- NOTE | 2018-06-25 12:27 | Diagnostic Imaging Report ---
INDICATION: Fever and shortness of breath. TIME OF EXAM: 12:10 p.m. COMPARISON: Correlation is made with prior study from 11/20/2014. FINDINGS: The heart size is normal. The pulmonary vascularity is unremarkable. The lungs are clear. No infiltrate, effusion or pneumothorax is detected. IMPRESSION: No acute cardiopulmonary process is detected. Dictated by: Dictated on workstation # [id number]
[2018-06-25] MEDS ORDERED: ONDA8TAB13 PO (12:52)
[2018-06-25] MEDS ORDERED: OSLT75C PO (12:52)
--- NOTE | 2018-06-25 12:54 | ED General ---
General Chief Complaint: Cough/Cold/Flu Symptoms Stated Complaint: FEVER,SOB Nursing Triage Note: Respiratory problems, coughing, runny nose- suspects respiratory infection or flu. Fever of 100-102. Fatigue. Nursing Sepsis Screen: No Definite Risk Source of Information: Patient Exam Limitations: No Limitations History of Present Illness Date Seen by Provider: Jun 25, 2018 Time Seen by Provider: 12:48 Initial Comments To ER with a cough that is intermittently productive for 3 weeks. She's had rhinorrhea, sore throat, fatigue and fever up to 102 for the past 48 hours. Timing/Duration: 1-2 Days Severity: Moderate Associated Systoms: Fever/Chills, Malaise; No Nausea/Vomiting; Shortness of Air Allergies and Home Medications Allergies Coded Allergies: Sulfa (Sulfonamide Antibiotics) (Verified Allergy, Severe, 10/16/12) Home Medications Clindamycin HCl 300 Mg Capsule, 300 MG PO QID Prescribed by: LARISSA JEAN-BAPTISTE on 03/01/17 1235 Metoprolol Tartrate 25 Mg Tablet, 25 MG PO BID Prescribed by: LARISSA JEAN-BAPTISTE on 03/01/17 1235 Prednisone 20 Mg Tab, 40 MG PO DAILY Prescribed by: LARISSA JEAN-BAPTISTE on 03/01/17 1235 Patient Home Medication List Home Medication List Reviewed: Yes Review of Systems Review of Systems Constitutional: see HPI, chills, fever, malaise, weakness EENTM: see HPI, nose congestion, throat pain Respiratory: see HPI, cough Cardiovascular: no symptoms reported Genitourinary: no symptoms reported Musculoskeletal: no symptoms reported Psychiatric/Neurological: No Symptoms Reported Past Gliptcr-Dkokym-Ojomzg Hx Patient Social History Recent Foreign Travel: No Contact w/Someone Who Travel: No Recent Infectious Disease Expo: No Recent Hopitalizations: No Immunizations Up To Date Tetanus Booster (TDap): Unknown PED Vaccines UTD: No Seasonal Allergies Seasonal Allergies: No Past Medical History Surgeries: Yes Appendectomy, Section, Gallbladder, Tonsillectomy Respiratory: Yes Pneumonia Cardiac: Yes Neurological: No Reproductive Disorders: No Female 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 0.0oz. [id number]; BMI Method:Estimated General Appearance: No Apparent Distress, WD/WN Eyes: Bilateral Eye Normal Inspection, Bilateral Eye PERRL HEENT: PERRL/EOMI, TMs Normal, Normal ENT Inspection Neck: Full Range of Motion, Normal Inspection Respiratory: No Accessory Muscle Use, No Respiratory Distress; No Wheezing Cardiovascular: Regular Rate, Rhythm, Normal Peripheral Pulses Gastrointestinal: Normal Bowel Sounds, Non Tender, Soft Extremity: Normal Capillary Refill, Normal Inspection Neurologic/Psychiatric: Alert, Oriented x3, No Motor/Sensory Deficits Skin: Normal Color, Warm/Dry Progress/Results/Core Measures Suspected Sepsis Recent Fever Within 48 Hours: No Infection Criteria Present: None New/Unexplained Altered Menta: No Sepsis Screen: No Definite Risk SIRS Temperature:99.2 Pulse: 90 Respiratory Rate: 22 Blood Pressure 147 /84 Mean: 105 Results/Orders Micro Results Microbiology 06/25/18 Influenza Types A,B Antigen ([facility]) - Final, Complete My Orders Orders - SULEMAN ESCOBEDO APRN Chest Pa/Lat (2 View) (06/25/18 11:35) Influenza A And B Antigens (06/25/18 11:35) Vital Signs/I&O 06/25/18 06/25/18 12:06 12:06 Temp 99.2 Pulse 90 Resp 22 B/P (MAP) 147/84 (105) O2 Delivery Room Air Room Air Capillary Refill : Less Than 3 Seconds Blood Pressure Mean: 105 Departure Communication (Admissions) Since the majority of her influenza type symptoms began about 48 hours ago I will still go ahead and treat her with Tamiflu Impression Primary Impression: Influenza Disposition: 01 HOME, SELF-CARE Condition: Stable Departure-Patient Inst. Decision time for Depature: 12:51 Referrals: RENATE SHAH MD (PCP/Family) Primary Care Physician Patient Instructions: Flu, Adult (DC) Add. Discharge Instructions: 1. Use Tylenol and Motrin to control fevers 2. DayQuil or NyQuil to help with symptoms such as runny nose and cough. Take the Tamiflu as directed twice daily for 5 days, however if this causes intolerable nausea then simply stop it. Scripts Ondansetron (Ondansetron Odt) 8 Mg Tab.rapdis 8 MG PO Q6H PRN for NAUSEA/VOMITING, #10 TAB Prov: SULEMAN ESCOBEDO APRN 06/25/18 Oseltamivir Phosphate (Tamiflu) 75 Mg Cap 75 MG PO BID, #10 CAP Prov: SULEMAN ESCOBEDO APRN 06/25/18 Work/School Note: Work Release Form Date Seen in the Emergency Department: Jun 25, 2018 Return to Work: Jul 01, 2018 Restrictions: No Restrictions Other Restrictions Listed Below: May return to work without restriction on SULEMAN ESCOBEDO APRN Jun 25, 2018 12:54
[2018-06-25 13:25] VITALS: BP 147/84
== END 2018-06-25 13:24 | disposition home or self-care (01) ==
LOC: EDUNIT# 10:38 → ER 10:41
DX: J11.1 Influenza due to unidentified influenza virus with other respiratory manifestations (principal); Z88.2 Allergy status to sulfonamides; Z79.52 Long term (current) use of systemic steroids; Z90.49 Acquired absence of other specified parts of digestive tract; Z98.890 Other specified postprocedural states; Z90.89 Acquired absence of other organs; Z87.01 Personal history of pneumonia (recurrent); Z98.51 Tubal ligation status; Z80.52 Family history of malignant neoplasm of bladder
CPT/HCPCS: 71046; 87804